=== PATIENT | male | born 1980 | race Caucasian/White ===

== ENCOUNTER 2017-02-05 23:34 | Emergency (ER) | payer SELFPAY | END 2017-02-06 01:35 | disposition home or self-care (01) | LOC: D.ER 23:34 | DX: M54.5 Low back pain (principal); M54.10 Radiculopathy, site unspecified; F17.200 Nicotine dependence, unspecified, uncomplicated ==

== ENCOUNTER → 2017-12-05 14:47 | Outpatient (CLI) | payer MEDICAID | END | disposition home or self-care (01) | LOC: D.MRI 14:30 | DX: M54.5 Low back pain (principal) ==

== ENCOUNTER → 2017-12-19 09:54 | Outpatient (CLI) | payer MEDICAID | END | disposition home or self-care (01) | LOC: D.MRI 09:54 | DX: M54.5 Low back pain (principal) ==

== ENCOUNTER → 2017-12-29 08:48 | Outpatient (CLI) | payer MEDICAID | END | disposition home or self-care (01) | LOC: D.RAD 08:48 → D.SP 09:30 → D.RAD 09:30 | DX: M51.26 Other intervertebral disc displacement, lumbar region (principal) ==